=== PATIENT | male | born 1965 | race African-American/Black ===

== ENCOUNTER 2016-11-02 17:28 | Inpatient (IN) | payer MEDICAID ==
[~2016-11-02] VITALS: Ht 170.2 cm; Wt 73.0 kg
[~2016-11-02 17:28] MED LIST: LURA80 PO
[2016-11-02 20:21] VITALS: BP 112/77
[2016-11-02 20:25] VITALS: BP 124/64
[2016-11-02] MEDS ORDERED: HALOPERIDOL 5 MG TABLET PO PRN (20:30)
[2016-11-02] MEDS ORDERED: LORazepam 2 MG TABLET PO PRN (20:30)
[2016-11-02] MEDS ORDERED: INFLUENZA VIRUS VACCINE QVS 2016-17 (3YR+)/PF 60 MCG/0.5 ML SYRINGE IM ONE (20:45)
[2016-11-03 01:49] VITALS: BP 118/69
[2016-11-03 08:09] LABS: BASOPHILS % (AUTO) 0.7 % (0.0-2.0); EOSINOPHILS % (AUTO) 2.9 % (1.0-6.0); HEMATOCRIT 38.5 % (41-53); HEMOGLOBIN 12.8 g/dL (13.5-17.5); LYMPHOCYTES # (AUTO) 1.6 K/uL (1.0-4.8); LYMPHOCYTES % (AUTO) 38.4 % (22.0-44.0); MEAN CORPUSCULAR HEMOGLOBIN 29.1 pg (26.0-34.0); MEAN CORPUSCULAR HGB CONC 33.3 G/dL (31.0-37.0); MEAN CORPUSCULAR VOLUME 87 fL (80-100); MONOCYTES # (AUTO) 0.4 K/uL (0.1-1.0); MONOCYTES % (AUTO) 8.5 % (2.0-9.0); NEUTROPHILS # (AUTO) 2.1 K/uL (1.8-7.7); NEUTROPHILS % (AUTO) 49.5 % (40.0-70.0); PLATELET COUNT (AUTO) 286 K/uL (150-450); RED BLOOD CELL COUNT(AUTO) 4.41 MIL/uL (4.50-5.90); RED CELL DISTRIBUTION WIDTH 14.2 % (11.5-14.5); WHITE BLOOD COUNT (AUTO) 4.2 K/uL (4.5-11.0)
[2016-11-03 08:33] LABS: HEMOGLOBIN A1C 5.4 % (4.5-6.2)
[2016-11-03] MEDS: NICOTINE 21 MG/24 HOUR PATCH TD SCH (08:36)
[2016-11-03 08:38] VITALS: BP 112/67
[2016-11-03 08:40] LABS: ALANINE AMINOTRANSFERASE 20 U/L (12-78); ALBUMIN 3.1 g/dL (3.4-5.0); ANION GAP 5 mmol/L (8-16); ASPARTATE AMINOTRANSFERASE 12 U/L (15-37); BILIRUBIN,TOTAL 0.2 mg/dL (0.1-1.0); CALCIUM, TOTAL 8.5 mg/dL (8.8-10.5); CARBON DIOXIDE 28 mmol/L (22-29); CHLORIDE 107 mmol/L (98-107); CHOL/HDL RATIO 2.9 (4.2-7.3); CREATININE 1.06 mg/dL (0.60-1.30); GLOMERULAR FILTR. RATE CALC > 60 mL/min (>60); POTASSIUM 4.3 mmol/L (3.5-5.1); SODIUM SERUM 140 mmol/L (136-145); THYROID STIMULATING HORMONE 0.41 uIU/mL (0.36-3.74); TOTAL PROTEIN, SERUM 6.8 g/dL (6.4-8.2); UREA NITROGEN, BLOOD 18 mg/dL (7-18)
[2016-11-03 16:11] VITALS: BP 111/62
[2016-11-03] MEDS: QUEtiapine FUMARATE 200 MG TABLET PO SCH (20:17)
[2016-11-04 05:44] VITALS: BP 112/64
[2016-11-04 08:29] VITALS: BP 115/64
[2016-11-04] MEDS: NICOTINE 21 MG/24 HOUR PATCH TD SCH (09:36)
[2016-11-04 16:29] VITALS: BP 109/70
[2016-11-04] MEDS: QUEtiapine FUMARATE 200 MG TABLET PO SCH (20:57)
[2016-11-05 06:33] VITALS: BP 115/64
[2016-11-05 08:19] VITALS: BP 118/62
[2016-11-05] MEDS: NICOTINE 21 MG/24 HOUR PATCH TD SCH ×2 (09:00→09:13)
[2016-11-05 16:06] VITALS: BP 118/87
[2016-11-05] MEDS: QUEtiapine FUMARATE 200 MG TABLET PO SCH (20:11)
[2016-11-06 00:19] VITALS: BP 106/65
[2016-11-06 08:09] VITALS: BP 118/66
[2016-11-06] MEDS: NICOTINE 21 MG/24 HOUR PATCH TD SCH (09:34)
[2016-11-06 16:11] VITALS: BP 118/67
[2016-11-06] MEDS: QUEtiapine FUMARATE 200 MG TABLET PO SCH (20:27)
[2016-11-06] MEDS: ZOLPIDEM TARTRATE 10 MG TABLET PO PRN (20:27)
[2016-11-07 00:53] VITALS: BP 111/62
[2016-11-07 08:51] VITALS: BP 113/61
[2016-11-07] MEDS: NICOTINE 21 MG/24 HOUR PATCH TD SCH (09:18)
[2016-11-07 16:21] VITALS: BP 113/58
[2016-11-07] MEDS: QUEtiapine FUMARATE 200 MG TABLET PO SCH (20:08)
[2016-11-07] MEDS: ZOLPIDEM TARTRATE 10 MG TABLET PO PRN (21:02)
[2016-11-08 05:50] VITALS: BP 118/60
[2016-11-08] MEDS: NICOTINE 21 MG/24 HOUR PATCH TD SCH (08:34)
[2016-11-08] MEDS ORDERED: MULTIVITAMINS, THERAPEUTIC TABLET PO SCH (09:00)
[2016-11-08 09:01] VITALS: BP 111/65
[2016-11-08] MEDS ORDERED: QUET200T PO (10:48)
[2016-11-08] MEDS ORDERED: MULT-1203 PO (10:48)
== END 2016-11-08 13:45 | disposition home or self-care (01) | DRG 750 ==
LOC: B2S 20:16 → EDSTATUS 20:23
DX: F25.1 Schizoaffective disorder, depressive type (principal); R45.851 Suicidal ideations; F17.210 Nicotine dependence, cigarettes, uncomplicated; D64.9 Anemia, unspecified; F12.90 Cannabis use, unspecified, uncomplicated; Z88.0 Allergy status to penicillin; Z79.899 Other long term (current) drug therapy; Z28.21 Immunization not carried out because of patient refusal
CPT/HCPCS: 83036; 84439; 84443